=== PATIENT | male | born 1950 | race Caucasian/White ===

== ENCOUNTER 2017-09-25 22:17 | Emergency (ER) | payer MEDICARE, OTHER, MEDICAID ==
--- NOTE | 2017-09-26 09:00 | ER ---
DATE SEEN: 09/25/2017 CHIEF COMPLAINT: Alteration of sensorium. HISTORY OF PRESENT ILLNESS: This is a 67-year-old male from the Dementia [facility]. He was brought in because he was unable to respond, this was noted today. He has also had some falls. The family could not wake him up. He has dementia and takes Depakote, Zyprexa, and trazodone, along with some clonazepam p.r.n. He also has type 2 diabetes that is stable. REVIEW OF SYSTEMS: There are no other systems that have been reported as positive. I asked for fever, vomiting, and mental status changes previously, and everything was unremarkable except as mentioned in the history of present illness. It is notable that he was in the Psych Unit about a month and a half ago because of behavioral changes including aggression. ALLERGIES: Please see the nurse's notes. MEDICATIONS: Please see the nurse's notes. PHYSICAL EXAMINATION: VITAL SIGNS: His blood pressure was within normal limits, his temperature was 96.8, his pulse was 82, and oxygenation was 99%. EARS, NOSE, AND THROAT: Negative. EYES: Pupils are equal and reactive. NECK: Supple. CHEST: Clear. CARDIOVASCULAR: Normal. EXTREMITIES: No edema. MENTAL STATUS: Unresponsive to significant pain. NEUROLOGIC: I am unable to find focal deficits, but I cannot complete a comprehensive examination, given his clinical status. LABORATORY DATA: Negative including troponin and sugar. EKG: Mild QT elongation. IMAGING: CT of the head with no acute changes. IMPRESSION: Alteration of mental status of unclear etiology. PLAN: Refer to [place]. I called the hospitalist, who admitted him for further treatment and investigation. /[id number] CINDA/STEVEL
== END 2017-09-26 01:00 ==
LOC: FB.ED 22:17
DX: R41.82 Altered mental status, unspecified (principal); F03.90 Unspecified dementia, unspecified severity, without behavioral disturbance, psychotic disturbance, mood disturbance, and anxiety; E11.9 Type 2 diabetes mellitus without complications
CPT/HCPCS: 36415; 70450; 80048; 82962; 84484; 85025; 93005; 99284; 99285